=== PATIENT | female | born 1950 | race Caucasian/White ===

== ENCOUNTER → 2016-10-07 | Outpatient (CLI) | payer OTHER, MEDICARE | LOC: FIMAGING 17:09 | PROVIDERS: ATTEND Specialist | DX: J40 Bronchitis, not specified as acute or chronic (principal); J98.11 Atelectasis ==

== ENCOUNTER → 2017-01-08 | Outpatient (CLI) | payer OTHER, MEDICARE | LOC: FIMAGING 12:28 | PROVIDERS: ATTEND Specialist | DX: R91.8 Other nonspecific abnormal finding of lung field (principal); J45.909 Unspecified asthma, uncomplicated ==

== ENCOUNTER → 2017-07-14 | Outpatient (CLI) | payer OTHER, MEDICARE | LOC: FIMAGING 14:56 | PROVIDERS: ATTEND Family Medicine | DX: Z12.31 Encounter for screening mammogram for malignant neoplasm of breast (principal); R92.2 Inconclusive mammogram; Z79.890 Hormone replacement therapy ==

== ENCOUNTER → 2018-01-21 | Outpatient (CLI) | payer OTHER, MEDICARE | LOC: FIMAGING 13:37 | PROVIDERS: ATTEND Specialist | DX: J98.4 Other disorders of lung (principal) ==